=== PATIENT | female | born 1995 | race Two or more races ===

== ENCOUNTER 2024-05-30 05:17 | Emergency (ER) | payer OTHER ==
[~2024-05-30] VITALS: Ht 172.7 cm; Wt 95.3 kg
[2024-05-30] MEDS ORDERED: KETOROLAC TROMETHAMINE 60 MG VIAL IM STA (05:57)
[2024-05-30] MEDS ORDERED: PROMETHAZINE HCL 25 MG/ML AMPUL IM STA (05:57)
[2024-05-30] MEDS ORDERED: KETOROLAC TROMETHAMINE 60 MG VIAL IM ONE (06:03)
[2024-05-30] MEDS ORDERED: PROMETHAZINE HCL 25 MG/ML AMPUL ONE (06:03)
[2024-05-30 06:20] LABS: HEMATOCRIT 37.9 % (36.0-45.00); HEMOGLOBIN 12.9 g/dL (12.0-15.00); MEAN CELL VOLUME 88.9 fL (80.00-100.00); MEAN CORPUSCULAR HEMOGLOBIN 30.4 pg (27.00-32.0); MEAN CORPUSCULAR HGB CONC 34.2 g/dl (32.0-36.0); PLATELET COUNT 238 K/uL (150-450); RED BLOOD COUNT 4.26 M/uL (4.00-6.00)
[2024-05-30] MEDS ORDERED: ONDANSETRON HCL 2 MG/ML VIAL IV ONE (08:45)
[2024-05-30] MEDS ORDERED: FAMOtidine 10 MG/ML (4ML VIAL) IV PUSH ONE (08:45)
[2024-05-30] MEDS ORDERED: ONDANSETRON HCL 2 MG/ML VIAL ONE (08:59)
[2024-05-30] MEDS ORDERED: FAMOTIDINE/PF 20 MG/2 ML VIAL ONE (09:00)
[2024-05-30] MEDS ORDERED: 0.9 % SODIUM CHLORIDE 500 ML IV ONE (09:30)
[2024-05-30 11:08] LABS: PH,URINE 5.5 (5.0-8.0); URINE APPEARANCE Clear; URINE BILIRRUBIN Negative (NEGATIVE); URINE BLOOD Small; URINE COLOR Yellow; URINE GLUCOSE Negative (NEGATIVE); URINE KETONE Negative (NEGATIVE); URINE LEUKOCYTE Moderate; URINE NITRATE Negative; URINE PROTEIN Negative (NEGATIVE); URINE UROBILINOGEN 0.2 E.U./dl
[2024-05-30 11:12] LABS: URINE BACTERIA 1658.3 uL (0.0-1933); URINE EPITHELIAL CELLS 27.5 uL (0.0-38.8); URINE RBC 8.5 uL (0.0-20.8); URINE WBC 124.7 uL (0.0-23.2)
[2024-05-30 11:39] LABS: URINE CAST 0.29 uL (0.0-1.40)
[2024-05-30 11:40] LABS: URINE YEAST FEW /hpf
[2024-05-30 12:18] LABS: ALBUMIN 3.8 gm/dL (3.4-5.0); BILIRUBIN TOTAL 0.55 mg/dL (0.3-1.2); CALCIUM 8.8 mg/dL (8.5-10.1); CREATININE SERUM 0.7 mg/dL (0.55-1.02); GFR 98.25; GLOBULINA 3.6 G/DL (2.4-3.5); POTASSIUM 4.7 mEq/L (3.5-5.1); TOTAL PROTEIN 7.4 gm/dL (6.4-8.2)
[2024-05-30] MEDS ORDERED: BACTRIM DS TAB1 EACH PO (12:59)
[2024-05-30] MEDS ORDERED: PEPCID AC20 MG PO (12:59)
[2024-05-30] MEDS ORDERED: ZOFRAN8 MG PO (12:59)
[2024-05-31] MEDS ORDERED: PHENERGAN25 MG PO (07:40)
[2024-05-31] MEDS ORDERED: PEPCID40 MG PO (07:40)
[2024-05-31] MEDS ORDERED: CIPRO500 MG/5 M PO (07:40)
[2024-05-31] MEDS ORDERED: PROTONIX40 MG PO (07:40)
[2024-05-31] MEDS ORDERED: INTESTINEX680 M1 PO (07:42)
== END 2024-05-30 13:38 | disposition home or self-care (01) ==
LOC: ER 05:20
PROVIDERS: General Practice
DX: N39.0 Urinary tract infection, site not specified (principal); Z88.0 Allergy status to penicillin

== ENCOUNTER 2024-05-30 22:04 | Emergency (ER) | payer OTHER ==
[~2024-05-30] VITALS: Ht 172.7 cm; Wt 95.3 kg
[~2024-05-30 22:04] MED LIST: BACTRIM DS TAB1 EACH PO; PEPCID AC20 MG PO; ZOFRAN8 MG PO
[2024-05-30] MEDS ORDERED: 0.9 % SODIUM CHLORIDE 1,000 ML IV STA (22:38)
[2024-05-30] MEDS ORDERED: ONDANSETRON HCL 2 MG/ML VIAL IV STA (22:38)
[2024-05-30] MEDS ORDERED: FAMOTIDINE/PF 20 MG in 0.9 % SODIUM CHLORIDE 8 ML IV PUSH STA (22:38)
[2024-05-30] MEDS ORDERED: FAMOTIDINE/PF 20 MG/2 ML VIAL ONE (23:18)
[2024-05-30] MEDS ORDERED: ONDANSETRON HCL 2 MG/ML VIAL ONE (23:18)
[2024-05-31 00:27] LABS: PH,URINE 5.5 (5.0-8.0); URINE APPEARANCE Turbid; URINE BILIRRUBIN Small (NEGATIVE); URINE BLOOD Large; URINE COLOR Orange; URINE GLUCOSE Negative (NEGATIVE); URINE KETONE Negative (NEGATIVE); URINE LEUKOCYTE Small; URINE NITRATE Negative
[2024-05-31 00:30] LABS: HEMATOCRIT 40.5 % (36.0-45.00); HEMOGLOBIN 13.3 g/dL (12.0-15.00); MEAN CELL VOLUME 89.7 fL (80.00-100.00); MEAN CORPUSCULAR HEMOGLOBIN 29.5 pg (27.00-32.0); MEAN CORPUSCULAR HGB CONC 32.9 g/dl (32.0-36.0); RED BLOOD COUNT 4.52 M/uL (4.00-6.00); RED CELL DISTRIBUTION WIDTH 13.2 % (11.5-14.5)
[2024-05-31 00:45] LABS: PLATELET COUNT 210 K/uL (150-450)
[2024-05-31 00:59] LABS: URINE BACTERIA 2272.9 uL (0.0-1933); URINE EPITHELIAL CELLS 28.6 uL (0.0-38.8); URINE WBC 176.8 uL (0.0-23.2)
[2024-05-31 01:16] LABS: URINE PROTEIN 100 (NEGATIVE); URINE RBC > 10558.9 uL (0.0-20.8)
[2024-05-31 03:16] LABS: CALCIUM 8.7 mg/dL (8.5-10.1); CREATININE SERUM 0.88 mg/dL (0.55-1.02); GFR 75.45; POTASSIUM 4.13 mEq/L (3.5-5.1)
[2024-05-31] MEDS ORDERED: PROMETHAZINE HCL 50 MG/ML AMPUL IM STA (04:21)
[2024-05-31] MEDS ORDERED: MORPHINE SULFATE 4 MG/ML VIAL IV STA (04:21)
[2024-05-31] MEDS ORDERED: PROMETHAZINE HCL 50 MG/ML AMPUL IM ONE (04:35)
[2024-05-31 04:47] LABS: ALBUMIN 3.7 gm/dL (3.4-5.0); ALKALINE PHOSPHATASE 52 U/L (50-136); ALT/SGPT 22 U/L (12-78); AMYLASE 37 U/L (25-115); AST/SGOT 15 U/L (15-37); BILIRUBIN TOTAL 0.33 mg/dL (0.3-1.2); BILIRUBIN,UNCONJUGATED 0.23 mg/dL (0.0-0.6); LIPASE 20 U/L (13-75); TOTAL PROTEIN 7.7 gm/dL (6.4-8.2)
[2024-05-31 04:49] LABS: BILIRUBIN,CONJUGATED < 0.10 mg/dL (0.0-0.2)
[2024-05-31] MEDS ORDERED: PROTONIX40 MG PO (07:40)
[2024-05-31] MEDS ORDERED: PEPCID40 MG PO (07:40)
[2024-05-31] MEDS ORDERED: PHENERGAN25 MG PO (07:40)
[2024-05-31] MEDS ORDERED: CIPRO500 MG/5 M PO (07:40)
[2024-05-31] MEDS ORDERED: INTESTINEX680 M1 PO (07:42)
== END 2024-05-31 07:57 ==
LOC: ER 22:07
PROVIDERS: Emergency Medicine; General Practice
DX: K52.89 Other specified noninfective gastroenteritis and colitis (principal); N39.0 Urinary tract infection, site not specified; R10.9 Unspecified abdominal pain; Z88.0 Allergy status to penicillin

== ENCOUNTER 2024-06-03 07:28 | Emergency (ER) | payer OTHER ==
[~2024-06-03] VITALS: Ht 172.7 cm; Wt 95.3 kg
[~2024-06-03 07:28] MED LIST changes: +CIPRO500 MG/5 M PO; +INTESTINEX680 M1 PO; +PEPCID40 MG PO; +PHENERGAN25 MG PO; +PROTONIX40 MG PO
[2024-06-03] MEDS ORDERED: DIPHENHYDRAMINE HCL 50 MG/ML VIAL 1ML IV ONE (09:00)
[2024-06-03] MEDS ORDERED: METHYLPREDNISOLONE SOD SUCC 40 MG VIAL IV ONE (09:00)
[2024-06-03] MEDS ORDERED: FAMOtidine 10 MG/ML (4ML VIAL) IV ONE (09:00)
[2024-06-03] MEDS ORDERED: KETOROLAC TROMETHAMINE 30 MG VIAL IU ONE (09:00)
[2024-06-03] MEDS ORDERED: KETOROLAC TROMETHAMINE 30 MG VIAL ONE (09:14)
[2024-06-03] MEDS ORDERED: DIPHENHYDRAMINE HCL 50 MG/ML VIAL 1ML ONE (09:14)
[2024-06-03] MEDS ORDERED: FAMOTIDINE/PF 20 MG/2 ML VIAL ONE (09:15)
[2024-06-03] MEDS ORDERED: METHYLPREDNISOLONE SOD SUCC 40 MG VIAL ONE (09:15)
[2024-06-03] MEDS ORDERED: BARIUM SULFATE 450 ML ORAL.SUSP PO ONE (09:27)
[2024-06-03 10:35] LABS: HEMATOCRIT 38.1 % (36.0-45.00); HEMOGLOBIN 12.9 g/dL (12.0-15.00); MEAN CELL VOLUME 88.4 fL (80.00-100.00); MEAN CORPUSCULAR HEMOGLOBIN 29.9 pg (27.00-32.0); MEAN CORPUSCULAR HGB CONC 33.9 g/dl (32.0-36.0); PLATELET COUNT 238 K/uL (150-450); RED BLOOD COUNT 4.31 M/uL (4.00-6.00); RED CELL DISTRIBUTION WIDTH 12.7 % (11.5-14.5)
[2024-06-03 11:02] LABS: INR 1.06; PARTIAL THROMBOPLASTIN TIME 28.8 SECONDS (22.0-34.0); PROTHROMBIN TIME 11.5 SECONDS (9.0-11.5)
[2024-06-03 11:16] LABS: ALKALINE PHOSPHATASE 58 U/L (50-136); ALT/SGPT 27 U/L (12-78); AMYLASE 35 U/L (25-115); ANION GAP 8 (10.0-20.0); AST/SGOT 18 U/L (15-37); BILIRUBIN TOTAL 0.59 mg/dL (0.3-1.2); BLOOD UREA NITROGEN 9 mg/dL (7-18); BUN CREA RATIO 10 (7.0-25.0); CALCIUM 9.2 mg/dL (8.5-10.1); CARBON DIOXIDE 31 mEq/L (21-32); CHLORIDE 105 mmol/L (98-107); CREATININE SERUM 0.94 mg/dL (0.55-1.02); GFR 69.92; GLOBULINA 3.8 G/DL (2.4-3.5); GLUCOSE FASTING 91 mg/dL (65-100); LIPASE 32 U/L (13-75); OSMOLALITY SERUM 278 MOSM/KG (275-295); POTASSIUM 4.04 mEq/L (3.5-5.1); SODIUM 140 mmol/L (136-145); TOTAL PROTEIN 7.8 gm/dL (6.4-8.2)
[2024-06-03 11:22] LABS: HCG QUANTITATIVE < 1 mUI/mL (1-3)
[2024-06-03 11:49] LABS: PH,URINE 5.5 (5.0-8.0); URINE APPEARANCE Clear; URINE BILIRRUBIN Negative (NEGATIVE); URINE BLOOD Small; URINE COLOR Yellow; URINE GLUCOSE Negative (NEGATIVE); URINE KETONE Negative (NEGATIVE); URINE LEUKOCYTE Moderate; URINE NITRATE Negative; URINE PROTEIN Negative (NEGATIVE); URINE UROBILINOGEN 0.2 E.U./dl
[2024-06-03 11:50] LABS: URINE BACTERIA 1996.2 uL (0.0-1933); URINE EPITHELIAL CELLS 38.4 uL (0.0-38.8); URINE RBC 11.6 uL (0.0-20.8); URINE WBC 189.6 uL (0.0-23.2)
[2024-06-03] MEDS ORDERED: CIPROFLOXACIN IN 5 % DEXTROSE 400 MG/200 ML PIGGYBAG IV ONE ×2 (14:15→15:17)
[2024-06-03] MEDS ORDERED: KETO10TA2 PO (15:04)
[2024-06-03] MEDS ORDERED: PROTONIX40 MG PO (15:04)
[2024-06-03] MEDS ORDERED: TAMS0.4C PO (15:04)
== END 2024-06-03 19:09 | disposition home or self-care (01) ==
LOC: ER 07:30
PROVIDERS: General Practice
DX: R10.9 Unspecified abdominal pain (principal); Z88.0 Allergy status to penicillin; N39.0 Urinary tract infection, site not specified
CPT/HCPCS: 36415; 74177; 96365; 99284; J0744; J1200; J1885; J3490; Q9965